=== PATIENT | male | born 1960 | race Caucasian/White ===

== ENCOUNTER 2020-06-13 21:11 | Emergency (ER) | payer OTHER ==
[~2020-06-13 21:11] MED LIST: AUGMENTIN 500-1 EACH PO
[2020-06-13 21:43] LABS: HEMOGLOBIN 15.2 gm/dl (14.0-17.5); RED BLOOD COUNT 4.66 M/UL (4.20-5.50); WHITE BLOOD COUNT 5.9 K/UL (4.5-11.0)
[2020-06-13 22:09] LABS: BUN/CREATININE RATIO 12 (0-10)
== END 2020-06-13 22:27 | disposition left against medical advice (07) ==
LOC: ER1 21:11
PROVIDERS: Emergency Medicine
DX: R07.89 Other chest pain (principal); R06.02 Shortness of breath; J44.9 Chronic obstructive pulmonary disease, unspecified; F17.210 Nicotine dependence, cigarettes, uncomplicated
CPT/HCPCS: 71045; 80053; 82550; 82553; 83690; 83735; 83874; 83880; 84100; 84484; 85025; 85610; 85730; 93005; 99285

== ENCOUNTER 2021-08-15 06:33 | Inpatient (IN) | payer OTHER ==
[~2021-08-15] VITALS: Ht 170.2 cm; Wt 56.7 kg
[2021-08-15 07:18] LABS: HEMOGLOBIN 14.3 gm/dl (14.0-17.5); RED BLOOD COUNT 4.35 M/UL (4.20-5.50); WHITE BLOOD COUNT 7.7 K/UL (4.5-11.0)
[2021-08-15 07:35] LABS: BUN/CREATININE RATIO 8 (0-10)
[2021-08-15] MEDS ORDERED: AMLODIPINE BESYL5 MG PO (09:36)
[2021-08-15] MEDS ORDERED: ONDANSETRON HCL4 MG PO (09:37)
[2021-08-15] MEDS ORDERED: ATORVASTATIN CA40 MG PO (09:37)
[2021-08-15] MEDS ORDERED: MECLIZINE HCL25 MG PO (09:38)
[2021-08-15] MEDS ORDERED: MELATONIN3 MG PO (09:39)
[2021-08-15] MEDS ORDERED: GABAPENTIN800 MG PO (09:39)
[2021-08-15] MEDS ORDERED: QUETIAPINE FUM100 MG PO (09:40)
[2021-08-15] MEDS ORDERED: PROAIR HFA8.5 GM INH (09:40)
[2021-08-15] MEDS ORDERED: RANEXA1000 MG PO (09:42)
[2021-08-16 04:19] LABS: HEMOGLOBIN 13.7 gm/dl (14.0-17.5); RED BLOOD COUNT 4.15 M/UL (4.20-5.50)
[2021-08-16 04:20] LABS: WHITE BLOOD COUNT 5.1 K/UL (4.5-11.0)
[2021-08-16 05:08] LABS: BUN/CREATININE RATIO 12 (0-10)
== END 2021-08-16 16:05 | disposition home or self-care (01) | DRG 440 ==
LOC: ER1 06:33 → M/S 08:29 → CDU 08:29 → M/S 18:44
PROVIDERS: Physician Assistant Medical; ADMIT Internal Medicine
DX: K85.90 Acute pancreatitis without necrosis or infection, unspecified (principal); F10.10 Alcohol abuse, uncomplicated; Z20.822 Contact with and (suspected) exposure to COVID-19; E87.6 Hypokalemia; I10 Essential (primary) hypertension; E78.5 Hyperlipidemia, unspecified; J44.9 Chronic obstructive pulmonary disease, unspecified; F17.210 Nicotine dependence, cigarettes, uncomplicated; Z95.0 Presence of cardiac pacemaker; Z82.49 Family history of ischemic heart disease and other diseases of the circulatory system
CPT/HCPCS: 36415; 71045; 80053; 80061; 82550; 82553; 83690; 83735; 84484; 85025; 85027; 93005; 96374; 96375; 99285; G0480; J1650; J2270; J2405; J7040; Q9967

== ENCOUNTER → 2021-08-21 | Outpatient (CLI) | payer OTHER ==
[~2021-08-21] MED LIST changes: +AMLODIPINE BESYL5 MG PO; +ATORVASTATIN CA40 MG PO; +GABAPENTIN800 MG PO; +MECLIZINE HCL25 MG PO; +MELATONIN3 MG PO; +ONDANSETRON HCL4 MG PO; +PROAIR HFA8.5 GM INH; +QUETIAPINE FUM100 MG PO; +RANEXA1000 MG PO
== END ==
LOC: KOH-I 09:56
DX: M54.2 Cervicalgia (principal); M54.6 Pain in thoracic spine; M54.50 Low back pain, unspecified; J44.9 Chronic obstructive pulmonary disease, unspecified; M47.812 Spondylosis without myelopathy or radiculopathy, cervical region; M47.816 Spondylosis without myelopathy or radiculopathy, lumbar region; M47.814 Spondylosis without myelopathy or radiculopathy, thoracic region
CPT/HCPCS: 71046; 72040; 72070; 72100